=== PATIENT | female | born 1965 | race Caucasian/White ===

== ENCOUNTER → 2023-09-07 | Outpatient (CLI) | payer OTHER | END | disposition home or self-care (01) | LOC: RAD 09-04 10:30 → MRI 13:00 → RAD 13:01 → MRI 13:01 → RAD 14:00 | PROVIDERS: ATTEND Internal Medicine | DX: M85.851 Other specified disorders of bone density and structure, right thigh (principal); Z78.0 Asymptomatic menopausal state ==

== ENCOUNTER → 2023-09-23 | Outpatient (CLI) | payer OTHER | END | disposition home or self-care (01) | LOC: MRI 09-07 13:00 | PROVIDERS: ATTEND Internal Medicine | DX: H46.8 Other optic neuritis (principal); I67.82 Cerebral ischemia ==

== ENCOUNTER → 2023-10-07 | Outpatient (CLI) | payer OTHER | END | disposition home or self-care (01) | LOC: CT 12:30 | PROVIDERS: ATTEND Internal Medicine | DX: I25.85 Chronic coronary microvascular dysfunction (principal); I65.23 Occlusion and stenosis of bilateral carotid arteries; R59.9 Enlarged lymph nodes, unspecified; I70.0 Atherosclerosis of aorta ==

== ENCOUNTER → 2023-11-06 | Outpatient (CLI) | payer OTHER | END | disposition home or self-care (01) | LOC: US 16:00 | PROVIDERS: ATTEND Surgery | DX: R59.1 Generalized enlarged lymph nodes (principal) ==